=== PATIENT | male | born 1975 | race African-American/Black ===

== ENCOUNTER 2018-04-01 00:39 | Emergency (ER) | payer SELFPAY ==
[2018-04-01 00:42] VITALS: BP 144/92
--- NOTE | 2018-04-01 00:42 | ER Report ---
History and Physical Time Seen By MD: 00:41 HPI/ROS CHIEF COMPLAINT: Penitentiary clearance HISTORY OF PRESENT ILLNESS: 42-year-old male brought in [place] [employer] for alcohol intoxication. He needs to go clearance. Patient voices no complaints. He voices no significant past medical history. He denies injuries. REVIEW OF SYSTEMS: Respiratory: No cough, no dyspnea. Cardiovascular: No chest pain, no palpitations. Gastrointestinal: No vomiting, no abdominal pain. Musculoskeletal: No back pain. Allergies: Coded Allergies: No Known Drug Allergies (Unverified , 04/01/18) Home Meds No Active Prescriptions or Reported Meds Reviewed Nurses Notes: Yes Old Medical Records Reviewed: Yes Constitutional Vital Sign - Last 24 Hours 04/01/18 00:42 Temp 97.5 Pulse 82 Resp 16 B/P (MAP) 144/92 Pulse Ox 97 O2 Delivery Room Air Physical Exam Vital signs stable, afebrile, pulse ox normal General Appearance: The patient is alert, has no immediate need for airway protection and no current signs of toxicity. Palpation of the head and neck reveal no tenderness or trauma Eyes: Pupils equal and round no injection. Respiratory: Chest is non tender, lungs are clear to auscultation. Cardiac: regular rate and rhythm Gastrointestinal: Abdomen is soft and non tender, no masses, bowel sounds normal. Musculoskeletal: Neck: Neck is supple and non tender. Extremities have full range of motion and are non tender. Skin: No rashes or lesions. DIFFERENTIAL DIAGNOSIS: After history and physical exam differential diagnosis was considered for alcohol intoxication, half-way clearance, polysubstance abuse Medical Decision Making ED Course/Re-evaluation ED Course Patient was minute to an examination room. H&P was done. The differential diagnoses was considered. On clinical examination. Patient has no finding is stable vital signs. He voices no complaints. He is medically cleared for half-way. Decision to Disposition Date: April 01, 2018 Decision to Disposition Time: 00:56 Depart Departure Latest Vital Signs Vital Signs Date Time Temp Pulse Resp B/P (MAP) Pulse Ox O2 Delivery O2 Flow Rate FiO2 04/01/18 00:42 97.5 82 16 144/92 97 Room Air Impression: Primary Impression: Medical clearance for incarceration Additional Impression: Alcohol intoxication Condition: Improved Disposition: HOME OR SELF-CARE New Scripts No Active Prescriptions or Reported Meds Patient Instructions: Alcohol Intoxication (ED) Additional Instructions: Medically cleared for half-way admission Problem Qualifiers Additional Impression: Alcohol intoxication Complication of substance-induced condition: uncomplicated Qualified Codes: F10.920 - Alcohol use, unspecified with intoxication, uncomplicated IRWIN SHERIFF DO April 01, 2018 00:42
== END 2018-04-01 01:04 | disposition home or self-care (01) ==
LOC: ER 00:41
DX: F10.920 Alcohol use, unspecified with intoxication, uncomplicated (principal)
CPT/HCPCS: 99284